=== PATIENT | female | born 1945 | race Caucasian/White ===

== ENCOUNTER 2019-01-14 08:00 | Outpatient (RCR) | payer MEDICARE, OTHER ==
[~2019-01-14 08:00] MED LIST: CELEXA20 MG PO; CRESTOR10 MG PO; HYDROCHLOROT25 MG PO; LIPITOR80 MG PO; LISINOPRIL20 MG PO; LORTAB 5/3255 MG PO; NAPROSYN500 MG PO; PERCOCET 5/321 COMBO PO; PRILOSEC20 MG/CAP PO
== END 2019-01-14 09:00 | disposition home or self-care (01) ==
LOC: PT 08:00
PROVIDERS: ATTEND Orthopaedic Surgery
DX: Z47.1 Aftercare following joint replacement surgery (principal); Z96.652 Presence of left artificial knee joint; M25.562 Pain in left knee; M21.372 Foot drop, left foot

== ENCOUNTER 2021-07-21 15:35 | Observation (INO) | payer MEDICARE, OTHER ==
[~2021-07-21] VITALS: Ht 157.5 cm; Wt 58.0 kg
--- NOTE | 2021-07-21 15:47 | NUR ---
PATIENT AMBULATED TO ROOM WITH STEADY GAIT AND PHYSICIAN NOTIFIED OF PATIENT STATUS
[2021-07-21] MEDS ORDERED: LOPRESSOR25 MG PO (16:38)
--- NOTE | 2021-07-21 19:01 | NUR ---
REPORT TO DANIEL Bautista RN
--- NOTE | 2021-07-21 19:26 | NUR ---
PT RESTING IN BED. RLQ TENDERNESS. NO DISTRESS. RIGHT PUPIL IRREGULARLY SHAPED.PT REPORTS PUPIL SHAPE HAS BEEN SINCE .
--- NOTE | 2021-07-21 19:33 | NUR ---
NO MISTRY CATHETER NOTED
--- NOTE | 2021-07-21 19:37 | NUR ---
REPORT GIVEN TO RIGOBERTO LAWRENCE
--- NOTE | 2021-07-21 20:05 | NUR ---
TELE BOX IN USE. Admission Note Report Given to: RIGOBERTO LAWRENCE Transported by: X Wheelchair Stretcher Transported with: X Nurse Transporter X Patent IV O2 X Soybean Grower Location: ICU X [facility]
[2021-07-21 20:15] VITALS: BP 152/68
--- NOTE | 2021-07-21 20:58 | NUR ---
ASSESSMENT COMPLETED. ORIENTED TO ROOM AND CALL LIGHT SYSTEM. PAIN 11/15 RLQ. RESPIRATIONS UNLABORED. HR REG. VAD LAC PATIENT INFUSING NS AT 150ML/HR. MAEW. AMBULATORY. UP TO BATHROOM WITHOUT DIFFICULTY. TORADOL IV GIVEN LATE DUE TO TIME ARRIVED TO FLOOR. NO ACUTE DISTRESS OBSERVED. PATIENT BACK TO BED WITHOUT DIFFICULTY. BED IN LOW POSITION. CALL LIGHT WITHIN REACH.
[2021-07-22] VITALS (11 sets, daily range): BP systolic 115–164; BP diastolic 48–80
--- NOTE | 2021-07-22 00:09 | NUR ---
ZOSYN IV INFUSING. WILL ADMINISTER TORADOL CLOSER TO 0100 FOR MORE APPROPRIATE SPACING. PATIENT RESTING QUIETLY. NO ACUTE DISTRESS OBSERVED. BED IN LOW POSITION. CALL LIGHT WITHINR EACH.
--- NOTE | 2021-07-22 05:00 | NUR ---
NEW BAG IVF INITIATED. PATIENT DENIES PAIN AT THIS TIME. BED IN LOW POSITION. CALL LIGHT WITHIN REACH.
--- NOTE | 2021-07-22 06:35 | NUR ---
PATIENT UP TO BATHROOM THEN DOWN THE OR VIA STRETCHER ESCORTED BY JOSEPH FRANKLIN FOR LAP APPY. NO PAIN AT THIS TIME. RESPIRATIONS EVEN AND UNLABORED. NO ACUTE DISTRESS.
--- NOTE | 2021-07-22 06:55 | NUR ---
REPORT REC FROM Raffaele MISHRA RN, PT CURRENTLY TAKEN TO OR FOR SCHEDULED PROCEDURE.
--- NOTE | 2021-07-22 08:46 | NUR ---
REPORT REC FROM Lily NEWELL RN
--- NOTE | 2021-07-22 09:00 | NUR ---
PT ARRIVED TO ROOM 274 VIA STRETCHER ACCOMPANIED BY Lily NEWELL RN. PT A&O X4. NO DISTRESS NOTED. PT ABLE TO MOVE FROM OR STRETCHER TO BED WITH NO COMPLICATIONS. O2 VIA NC @2L IN PLACE, PT TO CONTINUE WITH O2 USE X24 HOURS HOURS PER ANESTHESIA. CLEAR BREATH SOUNDS UPON AUSCULTATION. ACTIVE BOWEL SOUNDS X4 QUADRANTS. PT DENIES ANY PAIN. X3 INCISIONS NOTED WITH DERMABOND. BILATERAL SCDS IN PLACE. ORIENTED PT TO ROOM. #18 RAC HEALTHY AND PATENT. NO OTHER NEEDS AT THIS TIME. ASSESSMENT COMPLETED. DISCUSSED POC. CALL LIGHT WITHIN REACH.
--- NOTE | 2021-07-22 12:36 | NUR ---
PT SITTING IN BED. DENIES ANY PAIN AT THIS TIME, REFUSING IV TORADOL. NO OTHER NEEDS AT THIS TIME. CALL LIGHT WITHIN REACH.
--- NOTE | 2021-07-22 19:15 | NUR ---
PATIENT ALERT AND ORIENTED. ABLE TO MAKE NEEDS KNOWN. ASSESSMENT COMPLETE. NO COMPLAINTS OF PAIN AT THIS TIME. CALL LIGHT AND BELONGINGS WITHIN REACH.
[2021-07-23] VITALS: BP 132/65
--- NOTE | 2021-07-23 00:24 | NUR ---
KANU VALDERRAMA PER ORDERS. NO COMPLAINTS VOICED FROM PATIENT. CALL LIGHT REMAINS IN REACH.
[2021-07-23 04:00] VITALS: BP 126/69
--- NOTE | 2021-07-23 05:50 | NUR ---
SUPERVISED PATIENT WALKING TO ROOM BATHROOM. PATIENT TOLERATED WELL. VOIDED. PATIENT DENIES ANY PAIN.
--- NOTE | 2021-07-23 06:55 | NUR ---
REPORT REC FROM Gudelia SHANKAR RN
--- NOTE | 2021-07-23 07:48 | NUR ---
DR REES AT BEDSIDE DISCUSSING POC
[2021-07-23] MEDS ORDERED: PERCOCET 5/325M1 TAB PO (08:32)
[2021-07-23 09:14] VITALS: BP 138/62
--- NOTE | 2021-07-23 09:14 | NUR ---
PT SITTING IN BED. A&O X4. NO DISTRESS NOTED. CLEAR BREATH SOUNDS UPON AUSCULTATION. PT DENIES ANY PAIN AT THIS TIME. POST OP DAY #1. INCISIONS CDI. ACTIVE BOWEL SOUNDS X4 QUADRANTS. PT TOLERATING REGULAR DIET WELL. NO OTHER NEEDS AT THIS TIME. ASSESSMENT COMPLETED. DISCUSSED POC. CALL LIGHT WITHIN REACH.
[2021-07-23 10:00] VITALS: BP 146/72
--- NOTE | 2021-07-23 12:30 | NUR ---
d/c instructions given. IV intact upon removal.
--- NOTE | 2021-07-23 13:00 | NUR ---
Discharge instructions given. Patient verbalizes understanding of same. Discharged in stable condition via wheelchair to home accompanied by staff. Business card for Dr Park given with appointment information provided. instructions given for no heavy lifting and the ability to shower. All belongings sent with pt.
== END 2021-07-23 12:50 | disposition home or self-care (01) ==
LOC: ED 15:35 → ED-I 15:58 → ED 16:11 → MS2 16:12
PROVIDERS: ADMIT Surgery; ATTEND Surgery
PROC: 0DTJ4ZZ Resection of Appendix, Percutaneous Endoscopic Approach (ICD-10-PCS; principal; 2021-07-22)
DX: K35.30 Acute appendicitis with localized peritonitis, without perforation or gangrene (principal); I10 Essential (primary) hypertension; Z20.822 Contact with and (suspected) exposure to COVID-19; R10.9 Unspecified abdominal pain; K57.90 Diverticulosis of intestine, part unspecified, without perforation or abscess without bleeding; N20.0 Calculus of kidney
CPT/HCPCS: J0131; J1650; J2710; Q9967

== ENCOUNTER 2022-08-09 07:53 | Emergency (ER) | payer MEDICARE, OTHER ==
[2022-08-09] VITALS (9 sets, daily range): BP systolic 181–212; BP diastolic 71–92
[~2022-08-09] VITALS: Ht 157.5 cm; Wt 58.5 kg
[~2022-08-09 07:53] MED LIST changes: +LOPRESSOR25 MG PO; +PERCOCET 5/325M1 TAB PO
[2022-08-09 09:24] LABS: HEMOGLOBIN 14.6 g/dl (12.0-16.0); IMMATURE GRANULOCYTES 0.3 % (0.0-5.0); MEAN CELL VOLUME 95.6 fL CALC (80.0-100.0); MEAN CORPUSCULAR HGB 32.4 pG CALC (26.0-32.0); NEUT# 10.34 thou/uL (2.00-7.15); RED BLOOD COUNT 4.5 mill/uL (4.20-5.60); RED CELL DISTRI WIDTH 12.1 % (11.5-15.5)
[2022-08-09 09:52] LABS: ALBUMIN 4.9 g/dL (3.2-5.0); ALKALINE PHOSPHATASE 64 u/l (38-126); ANION GAP 15 (6-22 (CALC)); BUN 14 mg/dL (8-23); BUN/CREATININE RATIO 15 (12-20 (CALC)); CARBON DIOXIDE 30 mmol/l (22-30); CHLORIDE 99 mmol/l (95-108); CREATININE 0.9 mg/dL (0.5-1.0); GFR FOR AFR.AMER. > 60 ML/MIN (>=60 (CALC)); GFR OTHER RACES > 60 ML/MIN (>=60 (CALC)); LIPASE 91 u/l (23-300); POTASSIUM 3.6 mmol/l (3.5-5.1); SGOT/AST 42 u/l (9-36); SODIUM 140 mmol/l (137-146); TOTAL PROTEIN 7.8 g/dL (6.3-8.2)
[2022-08-09 11:21] LABS: URINE BILIRUBIN - DIPSTICK NEGATIVE (NEGATIVE); URINE BLOOD DIPSTICK NEGATIVE (NEGATIVE); URINE COLOR YELLOW; URINE GLUCOSE - DIPSTICK NEGATIVE (NEGATIVE); URINE KETONE 15 mg/dL (NEGATIVE); URINE LEUK ESTERASE NEGATIVE (NEGATIVE); URINE NITRITE - DIPSTICK NEGATIVE (Negative); URINE PROTEIN - DIPSTICK NEGATIVE (NEG-TRACE); URINE SPECIFIC GRAVITY 1.015; URINE UROBILINOGEN - DIPSTICK 0.2 E.U./dL (0.2)
== END 2022-08-09 11:46 | disposition home or self-care (01) ==
LOC: ED 07:53
PROVIDERS: Emergency Medicine
DX: S00.83XA Contusion of other part of head, initial encounter (principal); R55 Syncope and collapse; R91.1 Solitary pulmonary nodule; R10.9 Unspecified abdominal pain; I10 Essential (primary) hypertension; Y92.000 Kitchen of unspecified non-institutional (private) residence as the place of occurrence of the external cause; W18.30XA Fall on same level, unspecified, initial encounter
CPT/HCPCS: Q9967

== ENCOUNTER 2022-10-24 06:44 | Day surgery (SDC) | payer MEDICARE, OTHER ==
[~2022-10-24] VITALS: Ht 157.5 cm; Wt 57.2 kg
[~2022-10-24 06:44] MED LIST changes: +ACETAMINOP160 MG/5 M PO; +CALCIUM280 MG PO; +JOINT SUPPORT1 CAP PO; +MULTI VIT PO; +VIT C/ACEROL500 M1 PO
[2022-10-24 08:16] VITALS: BP 175/86
== END 2022-10-24 09:10 | disposition home or self-care (01) ==
LOC: ENDO 06:44 → ORM 08:50 → ENDO 09:10 → ORM 10:10
PROVIDERS: ATTEND Internal Medicine Gastroenterology
PROC: 0DBN8ZX Excision of Sigmoid Colon, Via Natural or Artificial Opening Endoscopic, Diagnostic (ICD-10-PCS; principal; 2022-10-24)
DX: K57.31 Diverticulosis of large intestine without perforation or abscess with bleeding (principal); D12.5 Benign neoplasm of sigmoid colon; K64.8 Other hemorrhoids; I10 Essential (primary) hypertension; K21.9 Gastro-esophageal reflux disease without esophagitis; E78.5 Hyperlipidemia, unspecified

== ENCOUNTER 2023-07-18 08:22 | Emergency (ER) | payer MEDICARE ==
[~2023-07-18] VITALS: Ht 157.5 cm; Wt 54.4 kg
[2023-07-18] VITALS (11 sets, daily range): BP systolic 143–171; BP diastolic 57–72
[2023-07-18 09:00] LABS: BASO% 0.8 % (0-3); EOS% 1.5 % (0-8); HEMATOCRIT 40.6 % (37.0-47.0); HEMOGLOBIN 14.1 g/dl (12.0-16.0); IMMATURE GRANULOCYTES 0.2 % (0.0-5.0); LYMPH% 27.8 % (15-41); MEAN CELL VOLUME 97.1 fL CALC (80.0-100.0); MEAN CORPUSCULAR HGB 33.7 pG CALC (26.0-32.0); MEAN CORPUSCULAR HGB CONC 34.7 g/dL CAL (32.0-36.0); MONO% 7.6 % (2-13); NEUT# 3.68 thou/uL (2.00-7.15); NEUT% 62.1 % (42-76); RED BLOOD COUNT 4.18 mill/uL (4.20-5.60); RED CELL DISTRI WIDTH 12.1 % (11.5-15.5)
[2023-07-18 09:10] LABS: ALBUMIN 4.2 g/dL (3.2-5.0); ALKALINE PHOSPHATASE 44 u/l (38-126); ANION GAP 12 (6-22 (CALC)); BILIRUBIN, TOTAL 0.6 mg/dL (0.02-1.3); BUN 18 mg/dL (8-23); BUN/CREATININE RATIO 19 (12-20 (CALC)); CARBON DIOXIDE 30 mmol/l (22-30); CHLORIDE 101 mmol/l (95-108); GFR FOR AFR.AMER. > 60 ML/MIN (>=60 (CALC)); GFR OTHER RACES 54 ML/MIN (>=60 (CALC)); POTASSIUM 3.4 mmol/l (3.5-5.1); SGOT/AST 37 u/l (9-36); SODIUM 140 mmol/l (137-146); TOTAL PROTEIN 7.3 g/dL (6.3-8.2)
[2023-07-18] MEDS ORDERED: VOLTAREN - GENE75 MG PO (10:11)
== END 2023-07-18 11:23 | disposition home or self-care (01) ==
LOC: ED 08:22
PROVIDERS: Family Medicine
DX: M47.812 Spondylosis without myelopathy or radiculopathy, cervical region (principal); I10 Essential (primary) hypertension

== ENCOUNTER 2023-12-25 19:00 | Emergency (ER) | payer MEDICARE ==
[~2023-12-25] VITALS: Ht 157.5 cm; Wt 54.8 kg
[2023-12-25] VITALS (9 sets, daily range): BP systolic 146–189; BP diastolic 59–95
[~2023-12-25 19:00] MED LIST changes: +VOLTAREN - GENE75 MG PO
[2023-12-25] MEDS ORDERED: ACETAMINOPHEN325 MG PO (19:17)
[2023-12-25] MEDS ORDERED: ACETAMINOPHEN 500 MG TAB PO ONE (20:00)
[2023-12-25] MEDS ORDERED: traMADol HCL 50 MG/TAB PO ONE (20:00)
[2023-12-25] MEDS ORDERED: KETOROLAC TROMETHAMINE 30 MG/ML SDV IM ONE (20:00)
[2023-12-25] MEDS ORDERED: TRAMADOL HCL50 MG PO (21:51)
[2023-12-25] MEDS ORDERED: Diph, Acellular Pertussis, Tet 0.5 ML/VIAL (Tdap) SDV IM ONE (21:55)
== END 2023-12-25 22:36 | disposition home or self-care (01) ==
LOC: ED 19:00
PROC: 0HQ1XZZ Repair Face Skin, External Approach (ICD-10-PCS; principal; 2023-12-25)
DX: S01.81XA Laceration without foreign body of other part of head, initial encounter (principal); S01.511A Laceration without foreign body of lip, initial encounter; S80.212A Abrasion, left knee, initial encounter; S80.02XA Contusion of left knee, initial encounter; S62.306A Unspecified fracture of fifth metacarpal bone, right hand, initial encounter for closed fracture; I10 Essential (primary) hypertension; E78.5 Hyperlipidemia, unspecified; W01.0XXA Fall on same level from slipping, tripping and stumbling without subsequent striking against object, initial encounter; Z96.652 Presence of left artificial knee joint

== ENCOUNTER 2025-01-14 07:29 | Emergency (ER) | payer MEDICARE ==
[~2025-01-14] VITALS: Ht 157.5 cm; Wt 54.0 kg
[2025-01-14] VITALS (9 sets, daily range): BP systolic 166–201; BP diastolic 68–102
[~2025-01-14 07:29] MED LIST changes: +ACETAMINOPHEN325 MG PO; +TRAMADOL HCL50 MG PO
[2025-01-14] MEDS ORDERED: ATORVASTATIN CA20 MG PO (07:56)
[2025-01-14] MEDS ORDERED: ISOVUE-300 (Iopamidol) 100 ML SDV IV ONE (08:45)
[2025-01-14] MEDS ORDERED: AZITHROMYCIN 500 MG in SODIUM CHLORIDE 0.9% 250 ML IV ONE (10:10)
[2025-01-14 10:35] LABS: BASO% 0.5 % (0-3); EOS% 0.6 % (0-8); HEMATOCRIT 42.1 % (37.0-47.0); HEMOGLOBIN 13.9 g/dl (12.0-16.0); IMMATURE GRANULOCYTES 0.1 % (0.0-5.0); LYMPH% 10.4 % (15-41); MEAN CELL VOLUME 97.9 fL CALC (80.0-100.0); MEAN CORPUSCULAR HGB 32.3 pG CALC (26.0-32.0); MONO% 7.9 % (2-13); NEUT# 6.71 thou/uL (2.00-7.15); NEUT% 80.5 % (42-76); RED BLOOD COUNT 4.3 mill/uL (4.20-5.60); RED CELL DISTRI WIDTH 12.3 % (11.5-15.5)
[2025-01-14] MEDS ORDERED: ZPAK PO (10:46)
[2025-01-14] MEDS ORDERED: AMOX/K CLAV875 M1 PO (10:46)
[2025-01-14] MEDS ORDERED: METOPROLOL SUCCINATE 25 MG/TAB-TOPROL XL PO ONE (10:50)
== END 2025-01-14 11:45 | disposition home or self-care (01) ==
LOC: ED 07:29
PROVIDERS: Family Medicine
DX: J18.9 Pneumonia, unspecified organism (principal); R91.8 Other nonspecific abnormal finding of lung field; I10 Essential (primary) hypertension; E78.5 Hyperlipidemia, unspecified; Z20.822 Contact with and (suspected) exposure to COVID-19
CPT/HCPCS: J0456; Q9967